=== PATIENT | male | born 1960 | race Caucasian/White ===

== ENCOUNTER → 2021-02-22 07:14 | Outpatient (CLI) | payer OTHER, SELFPAY ==
--- NOTE | ~2021-02-22 | XR_ITS ---
EXAMINATION: XR chest 2V DATE: 02/22/2021 08:30 INDICATION: Left-sided lung pain TECHNIQUE: PA and lateral views of the chest were obtained. COMPARISON: None FINDINGS: Peripheral wedge-shaped region of consolidation at the anterobasilar segment of the left lower lobe. Small left pleural effusion. No other airspace opacities, pulmonary edema, pneumothorax or right-side d pleural effusion. The cardiomediastinal silhouette is normal. Visualized bones and soft tissues are unremarkable. IMPRESSION: 1. Peripheral wedge-shaped region of consolidation at the anterobasilar right lower lobe which could represent pneumonia, pulmonary infarct or atelectasis. 2. Small left pleural effusion. Reviewed, dictated and finalized at location A. [facility] IMPRESSION: 1. Peripheral wedge-shaped region of consolidation at the anterobasilar right l ower lobe which could represent pneumonia, pulmonary infarct or atelectasis. 2. Small left pleural effusion.
== END ==
PROVIDERS: PCP Family Medicine; Visit Provider Family Medicine
DX: R07.89 Other chest pain (principal); J90 Pleural effusion, not elsewhere classified
CPT/HCPCS: 71046

== ENCOUNTER 2021-02-22 12:08 | Emergency (ER) | payer OTHER, SELFPAY ==
[2021-02-22 12:17] VITALS: BP 150/78; PULSE 93; RESP 16; TEMP 38.9; O2SAT 98
--- NOTE | 2021-02-22 12:18 | ED.URI ---
HPI - URI/Sore Throat General Chief Complaint: Chest Pain Stated Complaint: fever/night sweats/chest pain Time Seen by Provider: 02/22/21 12:18 Source: patient and RN notes reviewed History of Present Illness HPI Narrative: Patient is a 60-year-old male who presents the urgent care with complaints of fever, night sweats, chest discomfort with deep breathing and cough. Patient states symptoms started approximately 5 days ago and he has been taking ibuprofen/Tylenol for his symptoms. Patient denies of any history of ill contacts. Denies any known exposure to Covid or influenza. Patient does not have a Covid vaccine. States no one else in the home has been sick. Patient denies of any cardiac history. Patient had an outpatient x-ray ordered from his physician this morning and was advised to go to the emergency room to rule out [place]. Patient refused ER and came to urgent care for further work-up. Patient is currently denying chest pain at rest. Denying shortness of breath. No other acute complaints. No acute distress noted. Patient aware of the plan of care. Some parts of this dictation were generated by voice recognition software and may contain typographical and/or grammatical inaccuracies. Related Data Allergies Allergy/AdvReac Type Severity Reaction Status Date / Time No Known Allergies Allergy Unverified 07/13/11 12:20 Review of Systems Review of Systems: CONSTITUTIONAL: Reports a fever and night sweats EYES: Denies visual changes, redness, or discharge. ENT: Denies rhinorrhea, congestion, sore throat, or otalgia. CARDIOVASCULAR: Reports of chest pain with deep breathing on the left side RESPIRATORY: Reports of nonproductive cough without dyspnea GASTROINTESTINAL: Denies abdominal pain, nausea, vomiting, or diarrhea. GENITOURINARY: Denies dysuria or hematuria. SKIN: Denies rash or itching. MUSCULOSKELETAL: Denies back pain, joint pain, or myalgia. NEUROLOGIC: Denies headache, numbness, or weakness. All other systems reviewed are negative, except as documented in HPI. PMFSH Social History Social History Smoking status: Never smoker Alcohol intake: current Comments At the time of my signature, I reviewed and agree with the nursing past medical, surgical, social, and family history. There is no relevant family history pertinent to the patient complaint. Exam Narrative: GENERAL: This is a well-nourished, well-developed patient, in no apparent distress. HEAD: normocephalic, atraumatic. EYES: PERRL. Sclera clear/white. Vision is grossly intact. EARS: External ears normal, auditory canals clear and without drainage, TMs normal without perforation. Hearing grossly intact. NOSE: External nose normal with no obvious nasal discharge, nares without redness, clear rhinorrhea. THROAT: Mucous membranes moist, posterior pharynx clear. Moderate postnasal drainage NECK: Neck supple CARDIOVASCULAR: Regular rate and rhythm without murmurs, gallops, or rubs. RESPIRATORY: Slightly diminished bibasilar lung sounds without wheezes. SKIN: warm, intact with no suspicious lesions or rash, good texture and turgor. NEURO: awake, alert, and oriented to person, place and time. There were no obvious focal neurologic abnormalities. EXTREMITIES: No clubbing, cyanosis, or edema. Course Vital Signs Vital signs: Vital Signs Temperature 102.0 F H 02/22/21 12:17 Pulse Rate 93 02/22/21 12:17 Respiratory Rate 16 02/22/21 12:17 Blood Pressure 150/78 H 02/22/21 12:17 Pulse Oximetry 98 02/22/21 12:17 Temperature 102.0 F H 02/22/21 12:17 Pulse Rate 93 02/22/21 12:17 Respiratory Rate 16 02/22/21 12:17 Blood Pressure 150/78 H 02/22/21 12:17 Pulse Oximetry 98 02/22/21 12:17 Reviewed-patient is informed that they may have pre-hypertension or hypertension based on a blood pressure reading in the department. I recommend the patient call the primary care provider listed on their discharge instructions or a physician of their
--- NOTE | 2021-02-22 12:39 | ECG_ITS ---
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
== END 2021-02-22 12:55 | disposition left against medical advice (07) ==
PROVIDERS: Emergency Provider Nurse Practitioner Family; PCP Family Medicine
DX: J18.9 Pneumonia, unspecified organism (principal); Z20.822 Contact with and (suspected) exposure to COVID-19
CPT/HCPCS: 87426; 87804; 93005; 99203; C9803; G0463